=== PATIENT | female | born 1950 | race Two or more races ===

== ENCOUNTER 2024-10-10 11:59 | Emergency (ER) | payer MEDICAID, SELFPAY ==
[2024-10-10 12:15] VITALS: BP 169/88; PULSE 104; RESP 20; TEMP 37.2; O2SAT 94; BMI 31.2
--- NOTE | 2024-10-10 12:23 | XR_ITS ---
Examination: PA lateral chest 2 views TECHNIQUE: Upright PA lateral chest 2 views Exam date and time: October 10, 2024 1248 hours INDICATIONS: Chest pain today. FINDINGS: Mild accentuation bronchovascular markings No lobar pneumonia No pulmonary edema Significant osteopenia IMPRESSION: Bronchitis pattern
--- NOTE | 2024-10-10 12:23 | EKG_ITS ---
[facility] Test Date: 2024-10-10 Pat Name: RONALD CHICAS Department: Room: - Gender: Female Secretary Bookkeeper: : [id number] Requested By: Abelardo Brantley (DRILLER MACHINE) Order Number: [id number] Reading MD: Abelardo Brantley (DRILLER MACHINE) Measurements Intervals Ramsay Rate: 101 P: 62 PA: 204 QRS: 20 QRSD: 102 T: 56 QT: 363 QTc: 472 Interpretive Statements SINUS TACHYCARDIA ABNORMAL RHYTHM ECG Compared to ECG 01/25/2023 12:30:43 Sinus rhythm no longer present Sinus arrhythmia no longer present /store/S0/[id number].pdf
--- NOTE | 2024-10-10 12:23 | PD.EDRME ---
Rapid Medical Screening Exam RME Arrival date/time: 10/10/24 11:59 73-year-old female presents emergency department today complaints of generalized fatigue and joint pain Chief Complaint: General Adult/Misc Complain Vital signs: Vital Signs Temperature 98.9 F 10/10/24 12:15 Pulse Rate 104 H 10/10/24 12:15 Respiratory Rate 20 10/10/24 12:15 Blood Pressure 169/88 H 10/10/24 12:15 Pulse Oximetry (%) 94 L 10/10/24 12:15 Oxygen Delivery Method Room Air 10/10/24 12:15
[2024-10-10 12:41] LABS: Basophils # (Auto) 0.1 Thou/mm3 (0.0-0.2); Basophils % (Auto) 1 % (0-2.5); Eosinophils % (Auto) 1 % (0-10); Hematocrit 40.8 % (36.0-46.0); Hemoglobin 14.5 g/dL (12.0-16.0); Immature Granulocytes % (Auto) 1 % (0-0); Immature Granulocytes Auto 0.04 Thou/mm3 (0.00-0.00); Lymphocytes # (Auto) 3.4 Thou/mm3 (1.0-4.8); Lymphocytes % (Auto) 39 % (10-50); Mean Corpuscular HGB Conc 35.5 g/dl (31.0-37.0); Mean Corpuscular Hemoglobin 29.6 pg (25.0-35.0); Mean Corpuscular Volume 83 fL (80-100); Monocytes # (Auto) 0.8 Thou/mm3 (0.0-0.8); Monocytes % (Auto) 9 % (0-12); Neutrophils # (Auto) 4.5 Thou/mm3 (1.8-7.7); Neutrophils % (Auto) 51 % (37-80); Nucleated Red Blood Cell % 0 /100 WBC (0); Platelet Count 233 Thou/mm3 (140-440); RDW Standard Deviation 36.8 fL (36.4-46.3); White Blood Count 8.7 Thou/mm3 (3.6-11.0)
[2024-10-10 13:09] LABS: Alanine Aminotransferase 16 U/L (10-49); Albumin, Serum 4.4 gm/dL (3.4-4.8); Albumin/Globulin Ratio 1.4 (1.2-2.2); Alkaline Phosphatase 70 U/L (46-116); Anion Gap 9 (7-16); Aspartate Amino Transferase 17 U/L (0-34); BUN/Creatinine Ratio 17 Ratio (12-20); Bilirubin,Total 0.8 mg/dL (0.3-1.2); Blood Urea Nitrogen 12 mg/dL (9-23); Calcium 9.3 mg/dL (8.3-10.6); Calcium (Corrected) 9.3 mg/dL (8.5-10.1); Chloride 106 mMol/L (98-107); Creatinine (Component) 0.7 mg/dL (0.6-1.3); Estimated Creatinine Clearance 57.2 mL/min (>60); Globulin 3.1 gm/dL (2.3-3.5); Glucose 152 mg/dL (74-106); Osmolality,Calculated 282 (275-295); Potassium 3.8 mMol/L (3.4-5.1); Sodium 140 mMol/L (136-145); Total Protein 7.5 gm/dL (5.7-8.2); Troponin I < 0.002 ng/mL (0.0-0.045); eGFR > 60 See Note
[2024-10-10 16:07] VITALS: BP 152/77; PULSE 96; RESP 18; TEMP 37.1; O2SAT 96
[2024-10-10 16:40] LABS: Collection Type, Urine Clean Catch
[2024-10-10 16:55] LABS: Amphetamine/Methamp Scrn,U Negative (Negative); Barbiturate Screen,Urine Negative (Negative); Benzodiazepines Screen,Urine Negative (Negative); Benzoylecgonine Screen, Ur Negative (Negative); Fentanyl Screen,Urine Negative (Negative); Opiate Screen,Urine Negative (Negative); THC Screen,Urine Negative (Negative)
--- NOTE | 2024-10-10 17:09 | EDNOTE_ITS ---
ED General RME/HPI General Chief complaint: General Adult/Misc Complain Stated complaint: DON'T FEEL RIGHT, SOMETHING CRAWLING UNDER SKIN Arrival date/time: 10/10/24 11:59 RME / HPI RME / HPI narrative: 10/10/24 11:59 73-year-old female presents emergency department today complaints of generalized fatigue and joint pain DR. ZEE MAIN ED EVALUATION 73 year old female with history of hypertension and hyperlipidemia presents to the ED for evaluation of feeling tremulous x 2 days. Reportedly symptoms are present only at night and accompanied by hands and feet feeling sweaty. Denies feeling anxious in any way or recent stressful news. Patient additionally complains of discomfort and fullness sensation to the left upper quadrant and epigastric regions that is worse after eating and leaning forward. Accompanied by frequent belching that is worse at night. Denies any history of similar symptoms. Denies fevers, chills, chest pain, cough, shortness of breath, nausea, vomiting, diarrhea, or urinary symptoms. Related Data Home Medications ?Medication ?Instructions ?Recorded ?Confirmed losartan 100 mg tablet 100 mg PO QDAY 06/01/23 06/01/23 Allergies Allergy/AdvReac Type Severity Reaction Status Date / Time No Known Allergies Allergy Verified 10/10/24 12:03 Review of Systems Review of Systems Narrative Review of Systems: Gen: No fever, no chills, no weight loss, +feeling tremulous EYES: No discharge, no visual changes, no pain HEENT: No ear pain, no congestion, no sore throat PULM: no shortness of breath, no cough, no congestion CV: No chest pain, no dyspnea on exertion, no palpitations, no chest tightness GI: No nausea, no vomiting, no diarrhea, +left upper abdominal fullness, +frequent belching, no constipation : No frequency, no urgency,? no dysuria Musc/skel: No joint pain, no back pain Skin: No rash, no ecchymosis, no lesions Psyc: No hallucinations, no depression Heme/Lymph: No easy bleeding or bruising tendencies Neuro: No weakness, no headache Past Medical History Past Medical History CARDIAC: Positive Cardiac Disorders, Hypercholesterolemia and Hypertension GASTROINTESTINAL: Positive Gastrointestinal Disorders, Gall Bladder Disease (HAD SURGERY) and Obesity REPRODUCTIVE: Positive Previous Pregnancies MUSCULOSKELETAL: Positive Musculoskeletal Disorders, Arthritis and Osteoporosis PSYCHO/SOCIAL: Positive Depression (NO MEDS) OTHER HISTORY: Positive Chicken Pox, Mumps and Cancer Family History FAMILY HISTORY: Negative Family Psychiatric Problems, Family Respiratory Disorders, Family Cardiac Disorders, Family Gastrointestinal Problems, Family Cancer, Family Surgery or Family Anesthesia Reaction Social History SMOKING STATUS: Never smoker ED Exam Narrative Physical exam: GENERAL APPEARANCE: AxOx4, no obvious distress, nontoxic appearing HEENT: NC, AT. MMM. EOMI, clear conjunctiva, oropharynx clear. NECK: Supple without lymphadenopathy. No stiffness or restricted ROM. HEART: Normal rate and regular rhythm, normal S1/S1, no m/r/g LUNGS: CTAB, moving air well. No crackles or wheezes are heard. ABDOMEN: Soft, nontender, nondistended with good bowel sounds heard. BACK: No midline C/T/L spine pain or deformity, No CVAT, no obvious deformity. EXTREMITIES: Without cyanosis, clubbing or edema. MUSCULOSKELETAL: FROM of all major joints, no chest tenderness NEUROLOGICAL: Grossly nonfocal. Alert and oriented, moving all 4 extremities. CN not formally tested but appear grossly intact. Skin: Warm and dry without any rash. Course Course Course Narrative: chest xray ordered to help determine etiology of chest pain. Quality Measures none Orders Category Date Time Status Bedside Influenza A&B Antigen Test NOW Care 10/10/24 12:23 Completed EKG (ED ONLY) *Do not use* NOW Care 10/10/24 12:23 Completed EKG (ED Only) Stat Exams 10/10/24 12:23 Draft XR chest 2V Stat Exams 10/10/24 12:23 Completed CBC Stat Lab 10/10/24 12:30 Completed Comprehensive Metabolic Panel Stat Lab 10/10/24 12:30 Completed Drug Screen,Urine Stat Lab 10/10/24 16:35 Completed Troponin I Stat Lab 10/10/24 12:30 Completed UA, C/S IF [Urinalysis, C/S if Indicated] Stat Lab 10/10/24 16:35 Received Vital Signs Vital signs: Vital Signs Temperature 98.9 F 10/10/24 12:15 Pulse Rate 104 H 10/10/24 12:15 Respiratory Rate 20 10/10/24 12:15 Blood Pressure 169/88 H 10/10/24 12:15 Pulse Oximetry (%) 94 L 10/10/24 12:15 Oxygen Delivery Method Room Air 10/10/24 12:15 Pulse ox is 94% on room air which is adequate. [facility] Patient data External records reviewed:: [facility] previous records (I reviewed H&P on 06/02/2023) Clinical information provided by:: patient Social determinants that could affect healthcare access:: none Patient has the following chronic illnesses:: HTN, HLD How is presenting disease/condition affected by chronic disease/condition?: u neffected by Evaluation data The following diagnostics were reviewed and interpreted by me:: lab results, radiology exam(s) and EKG tracing(s) (Sinus tachycardia, rate 101, normal axis, normal intervals, no acute ischemic changes, no STEMI. ) Lab and/or radiology exams considered but not ordered:: None Interpretation Summary: Ordering Physician: Fercho CISNEROS)Abelardo NP Date of Service: 10/10/24 Procedure(s): XR chest 2V Accession Number(s): [id number] cc: Fercho CISNEROS),Abelardo WHITEHEAD; Madan Arauz MD~ Examination: PA lateral chest 2 views TECHNIQUE: Upright PA lateral chest 2 views Exam date and time: October 10, 2024 1248 hours INDICATIONS: Chest pain today. FINDINGS: Mild accentuation bronchovascular markings No lobar pneumonia No pulmonary edema Significant osteopenia IMPRESSION: Bronchitis pattern Dictated By: Madan Arauz MD Signed By: <Electronically signed by Madan Arauz MD in OV> 10/10/24 1301 Medications Medications considered but not ordered:: None Medication administrations:: None Consultations Consultation(s) initiated? (list below): No Diagnosis Differential Diagnosis ED Complaint MDM: GERD, gastritis, anxiety Most likely diagnosis given after review of the tests above:: GERD Admission Indicated Admission indicated?: not indicated Explain why admission is indicated or not indicated:: Does not meet admission criteria Admission Request Was there a request for admission?: No Disposition Plan Disposition Plan: Discharge Discharge Attestation Discharge Attestation: The patient and all family members were given an opportunity to ask questions and understood the discharge instructions. Discharge instructions specifically effects, indications for sooner follow up or return to the emergency department, and the expected course of current diagnosis. Patient condition: Stable Medical Decision Making Differential Diagnosis Differential Diagnosis: GERD, gastritis, anxiety Lab Data 10/10/24 12:30 10/10/24 12:30 Labs: Lab Results 10/10/24 10/10/24 Range/Units 12:30 16:35 WBC 8.7 (3.6-11.0) Thou/mm3 RBC 4.90 (4.00-5.20) Miln/mm3 Hgb 14.5 (12.0-16.0) g/dL Hct 40.8 (36.0-46.0) % MCV 83 (80-100) fL MCH 29.6 (25.0-35.0) pg MCHC 35.5 (31.0-37.0) g/dl RDW Std Deviation 36.8 (36.4-46.3) fL Plt Count 233 (140-440) Thou/mm3 Neut % (Auto) 51 (37-80) % Lymph % (Auto) 39 (10-50) % [place] % (Auto) 9 (0-12) % Eos % (Auto) 1 (0-10) % Baso % (Auto) 1 (0-2.5) % Neut # (Auto) 4.5 (1.8-7.7) Thou/mm3 Lymph # (Auto) 3.4 (1.0-4.8) Thou/mm3 [place] # (Auto) 0.8 (0.0-0.8) Thou/mm3 Eos # (Auto) 0.0 (0.0-0.5) Thou/mm3 Baso # (Auto) 0.1 (0.0-0.2) Thou/mm3 Immature Gran # (Auto) 0.04 H (0.00-0.00) Thou/mm3 Absolute Nucleated RBC 0.00 (0.00-0.00) Thou/mm3 Immature Gran % 1 H (0-0) % Nucleated RBC % 0 (0) /100 WBC Sodium 140 (136-145) mMol/L Potassium 3.8 (3.4-5.1) mMol/L Chloride 106 (98-107) mMol/L Carbon Dioxide 25.0 (20.0-31.0) mMol/L Anion Gap 9 (7-16) BUN 12 (9-23) mg/dL Creatinine 0.7 (0.6-1.3) mg/dL Estim Creat Clear Calc 57.2 L (>60) mL/min eGFR > 60 (60 - ) See Note BUN/Creatinine Ratio 17 (12-20) Ratio Glucose 152 H (74-106) mg/dL Calculated Osmolality 282 (275-295) Calcium 9.3 (8.3-10.6) mg/dL Corrected Calcium 9.3 (8.5-10.1) mg/dL Total Bilirubin 0.8 (0.3-1.2) mg/dL AST 17 (0-34) U/L ALT 16 (10-49) U/L Alkaline Phosphatase 70 (46-116) U/L Troponin I < 0.002 (0.0-0.045) ng/mL Total Protein 7.5 (5.7-8.2) gm/dL Albumin 4.4 (3.4-4.8) gm/dL Globulin 3.1 (2.3-3.5) gm/dL Albumin/Globulin Ratio 1.4 (1.2-2.2) Urine Opiates Screen Negative (Negative) Urine Fentanyl Screen Negative (Negative) Ur Barbiturates Screen Negative (Negative) U Amphetamin/Meth Scrn Negative (Negative) U Benzodiazepines Scrn Negative (Negative) U Cocaine Metab Screen Negative (Negative) U Marijuana (THC) Screen Negative (Negative) Discharge Plan Plan Patient Disposition: HOME (Self Care) Prescriptions/Referrals Prescriptions/Med Rec: No Action losartan 100 mg tablet 100 mg PO QDAY Referrals: No Primary/Family,Physician [Primary Care Provider] - In 1 week Problem List Clinical Impression: GERD (gastroesophageal reflux disease) Patient/Caregiver Discharge Instructions Education Materials: ED GERD (Adult) Additional Instructions: Puede sun 20 mg de famotidina (Pepcid) de venta rey dos veces al d?a sanjay los pr?ximos 10 d?as. Alba un seguimiento con moore m?dico de atenci?n primaria en 3 a 5 d?as para volver a controlarlo. Puede regresar al departamento de emergencias grey pronto hayden los s?ntomas empeoren o si nota alg?n problema nuevo y preocupante. Print Language: Peruvian Stand Alone Forms: Dolores Award Info., Patient Portal Info Letter
[2024-10-10 17:21] LABS: Bilirubin,Urine Negative (Negative); Blood,Urine 1+ (Negative); Clarity,Urine Clear (Clear/Hazy); Color,Urine Lt-Yellow (Lt Yel-Yel); Glucose, Urine Negative (Negative); Ketones,Urine Negative (Negative); Leukocyte Esterase,Urine Positive (Negative); Nitrite,Urine Negative (Negative); PH,Urine 6.5 (5.0-7.0); Protein,Urine Negative (Neg - Trace); RBC,Urine 19 /hpf (0-3); Specific Gravity,Urine 1.016 (1.001-1.035); Squamous Epithelial Cell,Urine < 1 /hpf (0-5); Urobilinogen,Urine Negative mg/dL (0.0-1.0); WBC,Urine 75 /hpf (0-5)
[2024-10-10 17:38] LABS: Culture Indicated,Urine Yes
== END 2024-10-10 17:26 | disposition home or self-care (01) ==
PROVIDERS: Nurse Practitioner Primary Care; Emergency Provider Emergency Medicine
DX: K21.9 Gastro-esophageal reflux disease without esophagitis (principal); R00.0 Tachycardia, unspecified; I10 Essential (primary) hypertension; E78.00 Pure hypercholesterolemia, unspecified
CPT/HCPCS: 36415; 71046; 80053; 80307; 81001; 84484; 85025; 87086; 87400; 93005; 99283